=== PATIENT | male | born 1970 | race Caucasian/White ===

== ENCOUNTER 2017-08-06 12:37 | Outpatient (CLI) | payer BC ==
[~2017-08-06 12:37] MED LIST: Gadobenate Dimeglumine 529 MG/1 ML (20ML VIAL) ONE
--- NOTE | 2017-08-06 15:48 | MRI ---
PRE AND POST CONTRAST ENHANCED MRI IMAGES OF THE LUMBAR SPINE: History: Lumbar radiculopathy. M54.16 Technique: Multiplanar, multisequence pre and post contrast enhanced MRI images of the lumbar spine o btained. FINDINGS: For the purposes of this dictation, the last freely mobile vertebral body will be considered to be th e L5 vertebral body. All other vertebral bodies numbered according to this. T12-L1, L1-2: Unremarkable. L2-3: Disc desiccation is seen. There is a mild broad based disc bulge with bilateral facet and ligam entum flavum hypertrophy. This results in mild L2-3 central and lateral recess stenosis. L3-4: Disc desiccation is seen. There is a broad based disc bulge with bilateral facet hypertrophy. T his results in mild central and lateral recess stenosis. Mild left and minimal right sided neural for aminal narrowing is seen due to facet hypertrophy as well as the broad based disc bulges which extend into the neural foramen. L4-5: Disc desiccation is seen. There is a broad based disc bulge with bilateral facet hypertrophy re sulting in mild central and lateral recess stenosis. There is mild bilateral neural foraminal narrowi ng seen. There is also a right L4-5 foraminal annular disc fissure seen. L5-S1: Disc desiccation is seen. There is an area of enhancement in the left L5-S1 lateral recess, mo st compatible with post-surgical epidural scarring. There is no evidence of a recurrent disc protrusi on. The right neural foramen is patent. Central canal demonstrates some anterior epidural scarring at L5-S1 on the left. This involves the left S1 nerve root process through the lateral recess. IMPRESSION: 1. L2-3, L3-4, and L4-5 disc desiccation. 2. Post-surgical changes seen in the left L5-S1 epidural space. No significant evidence of recurrent disc herniation seen. POS: C
== END 2017-08-06 12:38 | disposition home or self-care (01) ==
LOC: TBSIIMAG 12:37
PROVIDERS: ATTEND Surgery
DX: M51.16 Intervertebral disc disorders with radiculopathy, lumbar region (principal); Z98.890 Other specified postprocedural states
CPT/HCPCS: 72158; A9579

== ENCOUNTER 2019-01-28 10:47 | Outpatient (CLI) | payer BC ==
--- NOTE | 2019-01-28 15:33 | MRI ---
LUMBAR SPINE MRI WITH AND WITHOUT CONTRAST: COMPARISON: 08/06/2017. HISTORY: Low back pain. Previous microdiscectomy. COMPARISON: None. TECHNIQUE: MRI lumbar spine is performed with and without intravenous gadolinium administration. Multi sequentia l, multiplanar imaging performed. FINDINGS: Appropriate T1 marrow signal intensity of the lumbar vertebrae. Lumbar spine vertebral body height is maintained. No fracture. No significant STIR hyperintensity to suggest vertebral body edema or ligamentous injury. Intrinsic T1 and T2 hyperintensity at L5, likely representing a small vertebral b sumit hemangioma. Paraspinal muscles have appropriate signal intensity. Visualized solid organs of appropriate signal i ntensity. Conus medullaris terminates at the T12-L1 disc space. Postcontrast images: No abnormal enhancement with regards to the vertebral bodies. No abnormal enhanc ement with regards to the cauda equina and or conus medullary. T12-L1: Adequate disc hydration. No significant central canal stenosis. Neural foramina are patent. L1-L2: Adequate hydration. Left right paracentral disc bulges, ligament flavum thickening and facet h ypertrophy. Mild central canal stenosis. Mild bilateral foraminal narrowing. L2-L3: Moderate loss of disc space height. Broad-based disc bulge with a left and right subarticular component. Mass effect and partial obscuration of the traversing left and right L3 nerve roots. Moderate central canal stenosis. Mild bilateral foraminal narrowing. L3-L4: Moderate loss of disc space height. Broad-based disc bulge, ligament flavum thickening and fac et hypertrophy result in moderate central canal stenosis. Partial obscuration of bilateral traversing L4 nerve roots. Moderate right and left neural foraminal narrowing. L4-L5: Desiccation with mild loss of disc space height. Broad-based disc bulge flattens the thecal sa c. Mild central canal stenosis Partial obscuration of bilateral traversing L5 nerve roots. Mild ligament flavum thickening and facet hypertrophy. Mild to moderate bilateral foraminal narrowing. Not e, there is an annular fissure involving the disc at the level of the left neural foramen. Annular fissure abuts the foraminal left L4 nerve root. L5-S1: Desiccation without significant loss of disc space height. There is a central and right subare olar disc protrusion. Associated annular fissure in the right subarticular zone and right neural foramen. Displacement of the traversing right S1 nerve root. Displacement is felt to be due to disc m aterial as well as scar tissue given enhancement on the postcontrast sequence. Scar tissue completely obscures the traversing right S1 nerve root. Left subarticular zone is unremarkable. No si gnificant stenosis of the thecal sac. Moderate to severe right neural foraminal narrowing. Mild left neural foraminal narrowing. IMPRESSION: Degenerative changes of lumbar spine as described above. There is narrowing of the right subarticular zones secondary to disc material and scar tissue. Obscuration of the traversing right S1 nerve root. Transcribed Date/Time: 01/28/2019 3:48 PM
== END 2019-01-28 10:48 | disposition home or self-care (01) ==
LOC: SCSMRI 10:47
PROVIDERS: ATTEND Neurological Surgery
DX: M54.5 Low back pain (principal); M48.061 Spinal stenosis, lumbar region without neurogenic claudication; M47.816 Spondylosis without myelopathy or radiculopathy, lumbar region
CPT/HCPCS: 72158; A9577